=== PATIENT | female | born 1995 | race Caucasian/White ===

== ENCOUNTER 2017-08-27 12:44 | Emergency (ER) | payer BC ==
[~2017-08-27] VITALS: Ht 170.2 cm; Wt 67.4 kg
[2017-08-27 12:56] VITALS: TEMP 37; Ht 170.2 cm; Wt 67.4 kg
[2017-08-27] MEDS ORDERED: LIDOCAINE HCL 2% VISC SOLN 20 ML UDC PO STA (13:27)
[2017-08-27] MEDS ORDERED: ALUMINUM/MAGNESIUM SUSP 30 ML UDC PO STA (13:27)
[2017-08-27] MEDS ORDERED: FAMOTIDINE 20 MG TAB PO ONE (13:30)
[2017-08-27 13:58] LABS: BASO % 0.9 %; BASO ABS # 0.07 K/uL (0-0.2); HEMATOCRIT 40.9 % (37-47); HEMOGLOBIN 14.1 g/dL (12.0-16.0); IG# 0.01 K/uL (0.00-0.02); LYMPH % 22.2 %; LYMPH ABS # 1.78 K/uL (1.2-3.4); MEAN CELL VOLUME 89.9 fL (80-100); MEAN CORPUSCULAR HGB CONC 34.5 g/dl (32-36); MEAN PLATELET VOLUME 11.9 fL (7.4-10.4); MONO % 6.1 %; MONO ABS # 0.49 K/uL (0.11-0.59); NEUT % 60.7 %; NEUT ABS # 4.88 K/uL (1.4-6.5); PLATELET COUNT 257 K/uL (130-400); RED CELL DISTRIBUTION WIDTH CV 12.9 % (11.5-14.5); WHITE BLOOD COUNT 8.03 K/uL (4.8-10.8)
[2017-08-27] MEDS ORDERED: BCPILLS PO (14:03)
[2017-08-27] MEDS ORDERED: SERT-234 PO (14:03)
[2017-08-27 14:15] LABS: CREATININE 0.85 mg/dl (0.60-1.20); POTASSIUM 3.7 mmol/L (3.5-5.1)
[2017-08-27 14:18] LABS: TOTAL PROTEIN 7.3 gm/dl (6.4-8.2)
[2017-08-27] MEDS ORDERED: PRT/20 PO (15:36)
[2017-08-27 15:42] VITALS: BP 120/72; PULSE 100; O2SAT 96
--- NOTE | 2017-08-27 18:03 | EMERGENCY ROOM VISIT NOTE ---
History Report prepared by Ruben: Alyssa Aguirre Under the Supervision of: Dr. Ilya Hinojosa M.D. First contact with patient: 13:15 Chief Complaint: ABDOMINAL PAIN Stated Complaint: BACK PAIN;SEVERE ABDOMINAL CRAMPS;LOSS OF APPETITE History of Present Illness The patient is a 21 year old female who presents to the Emergency Room with complaints of constant abdominal pain starting 5 days ago. The patient describes the pain as a cramping and that it is throughout her stomach. She states that two Tuesdays ago she ate a hard boiled egg and had explosive, painful diarrhea. She states that it lasted for 2 days and went away. She reports that this past Monday she ate another hard boiled egg and started to get cramping. She reports that she thought she was constipated so she took Dulcolax. She reports that it made her cramps more severe since then. She states that she had really bad gas that smelled like sulfur. She notes that the pain is worse after eating and she has lost her appetite. The patient complains of diaphoresis and nausea. The patient denies vomiting. She notes that she has not had a normal bowel movement today, but had one yesterday and the day before. She notes that her stool was a little black in color, but she took Pepto Bismol to try to settle her stomach. She denies a fever and urinary symptoms. She notes that she has no family history of celiac disease and inflammatory bowel disease. The patient notes a little light brown vaginal discharge similar to what she gets before having her period, but states that it is fairly normal for her and her period was 2 weeks ago. The patient denies ever being sexually active. The patient notes that she is on control. Source of History: patient Onset: 5 days ago Position: abdomen Quality: cramping Timing: constant Modifying Factors (Worsening): eating, other (Dulcolax) Associated Symptoms: + diaphoresis, + nausea, No fevers, No vomiting, No diarrhea, No urinary symptoms Note: The patient complains of loss of appetite. Review of Systems See HPI for pertinent positives & negatives. A total of 10 systems reviewed and were otherwise negative. Past Medical & Surgical Medical Problems: (1) No Known Active Medical Problems Family History Patient reports no known family medical history. Social History Smoking Status: Never Smoker Marital Status: single Housing Status: lives with roommate Occupation Status: [employer] student Current/Historical Medications Scheduled Control Pills ( Control Pills), 1 TAB PO DAILY Pantoprazole (Protonix), 20 MG PO DAILY Sertraline (Zoloft), 100 MG PO DAILY Allergies Coded Allergies: No Known Allergies (Unverified , 08/27/17) Physical Exam Vital Signs Date Time Temp Pulse Resp B/P (MAP) Pulse Ox O2 Delivery O2 Flow Rate FiO2 08/27/17 15:42 100 16 120/72 96 08/27/17 14:27 105 16 125/85 97 Room Air 08/27/17 13:47 97 18 140/92 98 Room Air 08/27/17 12:56 37.0 118 18 119/81 95 Room Air Physical Exam Constitutional: Vital signs reviewed. Eyes: Pupils are equal round reactive to light. Conjunctiva are noninjected. ENT: Pharynx is clear without erythema or exudate. Mucous membranes are moist. Neck supple without meningeal signs. Respiratory: Clear to auscultation bilaterally. Breath sounds are equal bilaterally. Cardiovascular: Regular rate and rhythm. No rubs or gallops. GI: Soft, nondistended. Epigastric tenderness. No guarding. Bowel sounds are present. Rectal: Guaiac negative black stool. Musculoskeletal: No peripheral edema. No lower extremity tenderness. No CVA tenderness. Integumentary: No cyanosis. Neurological: The patient is awake and alert. No focal deficits. Psychiatric: Normal affect. Medical Decision & Procedures Laboratory Results 08/27/17 13:43 Red Blood Count 4.55, Mean Corpuscular Volume 89.9, Mean Corpuscular Hemoglobin 31.0, Mean Corpuscular Hemoglobin Concent 34.5, Mean Platelet Volume 11.9, Neutrophils (%) (Auto) 60.7, Lymphocytes (%) (Auto) 22.2, Monocytes (%) (Auto) 6.1, Eosinophils (%) (Auto) 10.0, Basophils (%) (Auto) 0.9, Neutrophils # (Auto ) 4.88, Lymphocytes # (Auto) 1.78, Monocytes # (Auto) 0.49, Eosinophils # (Auto ) 0.80, Basophils # (Auto) 0.07 08/27/17 13:43 Test 08/27/17 13:43 08/27/17 13:45 White Blood Count 8.03 K/uL (4.8-10.8) Red Blood Count 4.55 M/uL (4.2-5.4) Hemoglobin 14.1 g/dL (12.0-16.0) Hematocrit 40.9 % (37-47) Mean Corpuscular Volume 89.9 fL (80-100) Mean Corpuscular Hemoglobin 31.0 pg (25-34) Mean Corpuscular Hemoglobin Concent 34.5 g/dl (32-36) Platelet Count 257 K/uL (130-400) Mean Platelet Volume 11.9 fL (7.4-10.4) Neutrophils (%) (Auto) 60.7 % Lymphocytes (%) (Auto) 22.2 % Monocytes (%) (Auto) 6.1 % Eosinophils (%) (Auto) 10.0 % Basophils (%) (Auto) 0.9 % Neutrophils # (Auto) 4.88 K/uL (1.4-6.5) Lymphocytes # (Auto) 1.78 K/uL (1.2-3.4) Monocytes # (Auto) 0.49 K/uL (0.11-0.59) Eosinophils # (Auto) 0.80 K/uL (0-0.5) Basophils # (Auto) 0.07 K/uL (0-0.2) RDW Standard Deviation 42.0 fL (36.4-46.3) RDW Coefficient of Variation 12.9 % (11.5-14.5) Immature Granulocyte % (Auto) 0.1 % Immature Granulocyte # (Auto) 0.01 K/uL (0.00-0.02) Anion Gap 6.0 mmol/L (3-11) Est Creatinine Clear Calc Drug Dose 103.5 ml/min Estimated GFR () 115.1 Estimated GFR (Non- 99.3 BUN/Creatinine Ratio 10.5 (10-20) Calcium Level 9.0 mg/dl (8.5-10.1) Total Bilirubin 0.6 mg/dl (0.2-1) Direct Bilirubin 0.1 mg/dl (0-0.2) Aspartate Amino Transf (AST/SGOT) 16 U/L (15-37) Alanine Aminotransferase (ALT/SGPT) 18 U/L (12-78) Alkaline Phosphatase 77 U/L (45-117) Total Protein 7.3 gm/dl (6.4-8.2) Albumin 4.0 gm/dl (3.4-5.0) Lipase 176 U/L (73-393) Urine Color DK YELLOW Urine Appearance CLEAR (CLEAR) Urine pH 8.0 (4.5-7.5) Urine Specific Cope 1.025 (1.000-1.030) Urine Protein NEG (NEG) Urine Glucose (UA) NEG (NEG) Urine Ketones NEG (NEG) Urine Occult Blood NEG (NEG) Urine Nitrite NEG (NEG) Urine Bilirubin NEG (NEG) Urine Urobilinogen NEG (NEG) Urine Leukocyte Esterase NEG (NEG) Urine Test NEG (NEG) Laboratory results as reviewed by me. Medications Administered Medications (Trade) Dose Ordered Sig/Erica Route Start Time Stop Time Status Last Admin Dose Admin Lidocaine HCl (Viscous Lidocaine 2% Soln) 10 ml NOW STAT PO 08/27/17 13:27 08/27/17 13:29 DC 08/27/17 14:15 10 ML Al Hydroxide/Mg Hydroxide (Maalox Susp) 30 ml NOW STAT PO 08/27/17 13:27 08/27/17 13:29 DC 08/27/17 14:15 30 ML Famotidine (Pepcid Tab) 20 mg NOW ONCE PO 08/27/17 13:30 08/27/17 13:31 DC 08/27/17 14:15 20 MG ED Course 1317: The patient was evaluated in room B9. A complete history and physical exam was performed. 1327: Ordered Maalox Susp 30 ml PO, Lidocaine HCl 10 ml PO. 1330: Ordered Pepcid Tab 20 mg PO. 1420: I reevaluated the patient and she just received her medications. 1437: I reevaluated the patient and talked to her about her test results. She says that she felt better after the GI cocktail. She would like me to call her father. 1448: I spoke to the patient's father at this time about her symptoms, test results, and treatment plan. 1530: Upon reevaluation, the patient appeared to have improvement of her symptoms. I performed a rectal exam at this time. I discussed tonight's findings with her. She verbalized agreement of the treatment plan. The patient was discharged home. Medical Decision This is a 21-year-old female presents with abdominal pain. Differential diagnosis includes peptic ulcer disease, pancreatitis, irritable bowel syndrome , inflammatory bowel disease, celiac disease, food intolerance. I did perform a limited focused review of portions of the patient's old chart on the electronic medical record. The patient has had no recent pertinent visits to this hospital. I did evaluate the patient as noted above. IV access was established. I did treat her with Pepcid as well as a GI cocktail. I did order and personally review the patient's urinalysis as described above. I did order and review the patient's blood work as noted in the electronic medical record. White blood cell count is not elevated but the patient does have some mild eosinophilia. This may suggest an allergic component to her abdominal pain. Her LFTs and lipase are unremarkable. I did reassess the patient. She does state that she feels better. I did discuss the test results with the patient. At this time the cause of her pain is unclear. I did recommend that she avoid eggs in any food products she eats as she seemed to react to him twice over the past 2 weeks. I advised that she follow-up with a rotating field assembler. I did give her prescription for Protonix in case her symptoms are related to peptic ulcer disease. I also recommend that she follow-up with [facility] later this week for reassessment as the cause of her symptoms are not clear. She was also told to return should she have any worsening symptoms or any new concerning symptoms. I did discuss her care and test results with her father per request. Medication Reconcilliation Current Medication List: was personally reviewed by me Blood Pressure Screening Patient's blood pressure: Normal blood pressure Blood pressure disposition: Did not require urgent referral Impression Primary Impression: Upper abdominal pain Scribe Attestation The scribe's documentation has been prepared under my direct and personally reviewed by me in its entirety. I confirm that the note above accurately reflects all work, treatment, procedures, and medical decision making performed by me. Departure Information Dispostion Home / Self-Care Prescriptions Pantoprazole (Protonix) 20 Mg Tab 20 MG PO DAILY, #20 TAB Prov: Ilya Hinojosa M.D. 08/27/17 Referrals No Doctor, Assigned (PCP) Forms HOME CARE DOCUMENTATION FORM, IMPORTANT VISIT INFORMATION Patient Instructions My [facility] Additional Instructions You have been examined and treated today on an emergency basis only. This is not a substitute for, or an effort to provide, complete comprehensive medical care. It is impossible to recognize and treat all injuries or illnesses in a single emergency department visit. It is therefore important that you follow up closely with your physician, [facility] and a rotating field assembler. Call as soon as possible for an appointment. Return for worsening symptoms or if you develop fever, vomiting, or any other concerning symptoms.
== END 2017-08-27 15:43 | disposition home or self-care (01) ==
LOC: C.EDB 12:47
DX: R10.10 Upper abdominal pain, unspecified (principal)